=== PATIENT | female | born 1980 | race Caucasian/White ===

== ENCOUNTER 2019-01-02 12:00 | Inpatient (IN) | payer OTHER ==
[~2019-01-02] VITALS: Ht 157.5 cm; Wt 61.7 kg
[~2019-01-02 12:00] MED LIST: ACETAMINOOPHEN-1 TAB PO; ANAPROX275 MG PO; DOXYCYCLINE HY100 M1 PO; DUI500 PO
[2019-01-20] MEDS ORDERED: OBSTETRIX DHA1 EACH PO (12:00)
[2019-01-20] MEDS ORDERED: SYNTHROID50 MCG PO (12:00)
[2019-01-20] MEDS ORDERED: MACROBID 100 M100 MG PO (12:01)
== END 2019-01-23 10:40 | disposition home or self-care (01) | DRG 788 ==
LOC: LDR 01-20 10:18 → OB/GYN 01-20 10:18 → LDR 01-20 11:09 → OB/GYN 01-20 21:11 → LDR 01-27 12:00
PROVIDERS: ADMIT Obstetrics & Gynecology Maternal & Fetal Medicine
PROC: 4A1HXCZ Monitoring of Products of Conception, Cardiac Rate, External Approach (ICD-10-PCS; 2019-01-20)
PROC: 4A033R1 Measurement of Arterial Saturation, Peripheral, Percutaneous Approach (ICD-10-PCS; 2019-01-20)
PROC: 10D00Z1 Extraction of Products of Conception, Low, Open Approach (ICD-10-PCS; principal; 2019-01-20 16:15)
DX: O62.1 Secondary uterine inertia (principal); Z3A.39 39 weeks gestation of pregnancy; Z37.0 Single live birth